=== PATIENT | female | born 1970 | race Caucasian/White ===

== ENCOUNTER 2016-12-10 06:16 | Day surgery (SDC) | payer OTHER ==
[2016-12-09 13:09] VITALS: BMI 21.9
[2016-12-10] MEDS ORDERED: MIDAZOLAM HCL 2 MG/2 ML SINGLE DOSE VIAL ONE ×2 (07:21)
[2016-12-10] MEDS ORDERED: ROPIVACAINE HCL 0.5% 30ML VIAL ONE (07:23)
[2016-12-10] MEDS ORDERED: LIDOCAINE HCL/PF 2% SDV 5ML VIAL ONE (07:45)
[2016-12-10] MEDS ORDERED: PROPOFOL 20 ML ONE ×2 (07:45→08:13)
[2016-12-10] MEDS ORDERED: SCOPOLAMINE HYDROBROMIDE 1 PATCH PATCH.TD72 ONE (08:03)
--- NOTE | 2016-12-10 08:15 | HP ---
Satellite H - Chief Complaint Chief Complaint: right shoulder pain - Past Medical History Allergies/Adverse Reactions: Allergies Allergy/AdvReac Type Severity Reaction Status Date / Time No Known Drug Allergies Allergy Verified 12/09/16 13:09 ...LMP: 09/10/16 - Current Medications Current Medications: Home Medications Medication Instructions Recorded Oxycodone HCl/Acetaminophen 1 - 2 tab PO Q6H #50 tab MDD 8 12/10/16 [Percocet 5-325 mg Tablet -] Satellite Physical Exam - Physical Examination Vital Signs: Vital Signs Period Temp Pulse Resp BP Sys/Stern Pulse Ox Last 24 Hr 97.4 F 85 16 128/77 100 General Appearance: Well Nourished, Well Developed, Alert & Oriented x3 ENT: Clear Lung: Normal air movement Heart: Regular rate & rhythm Extremities: Other (right shoudler- + ttp, decr rom, + neer, + arevalo, nvi MRI + partial rct) Neurological: Intact, Alert, Oriented Satellite Impression/Plan - Impression/Plan Impression: right shoulder rct Operative Procedure: right shoulder arthroscopy with SAD possible RCR Date to be Performed: 12/10/16
[2016-12-10] MEDS ORDERED: ceFAZolin SODIUM 1 GM VIAL IVPB ONE (08:20)
[2016-12-10] MEDS ORDERED: ceFAZolin SODIUM 1 GM VIAL ONE (08:22)
[2016-12-10] MEDS ORDERED: DEXAMETHASONE SOD PHOSPHATE 4 MG/1 ML VIAL ONE (09:00)
[2016-12-10] MEDS ORDERED: KETOROLAC TROMETHAMINE 30 MG/1 ML VIAL ONE (09:01)
--- NOTE | 2016-12-10 09:05 | OP ---
Operative Note - Note: Operative Date: 12/10/16 ([facility]) Pre-Operative Diagnosis: right shoulder impingement, adhesive capsulitis Operation: right shoulder arthroscopy with extensive debridement of bone and soft tissue, JASPREET Post-Operative Diagnosis: Same as Pre-op Surgeon: Varghese Encarnacion Structural Rigger: Maury Barakat Anesthesiologist/POCKET BUILDER: Eze Yee Anesthesia: General, Local Specimens Removed: shavings Estimated Blood Loss (mls): 5 Operative Report Dictated: Yes
[2016-12-10] MEDS ORDERED: oxyCODONE HCL 5 MG TABLET PO PRN (09:18)
[2016-12-10] MEDS ORDERED: ONDANSETRON 4 MG/2 ML VIAL IVPUSH PRN (09:18)
[2016-12-10] MEDS ORDERED: LACTATED RINGERS SOLUTION 1,000 ML IV SCH (09:30)
[2016-12-10 10:45] VITALS: TEMP 97.7
[2016-12-10] MEDS ORDERED: ONDANSETRON 4 MG/2 ML VIAL ONE (11:23)
[2016-12-10] MEDS ORDERED: ONDANSETRON 4 MG/2 ML VIAL IVPB ONE (11:30)
--- NOTE | 2016-12-10 11:52 | OP ---
DATE OF OPERATION: 12/10/2016 PREOPERATIVE DIAGNOSIS: Adhesive capsulitis, right shoulder. POSTOPERATIVE DIAGNOSIS: Adhesive capsulitis, right shoulder, plus instability, right shoulder. SURGICAL PROCEDURE: Debridement and manipulation under anesthesia. SURGICAL ATTENDING: Varghese Encarnacion MD SADDLE STITCH OPERATOR: TALAT Pruitt ANESTHESIA: Scalene and general. CLOSURE: 3-0 nylon. COMPLICATIONS: None. CONDITION: To recovery room in stable condition. DESCRIPTION OF PROCEDURE: Patient was taken to the operating room on December 10, 2016. Scalene block followed by general anesthesia was administered by the anesthesiologist. IV Kefzol was given prophylactically prior to the case. Patient was placed in the beach-chair position with all prominences well padded. First, a manipulation under anesthesia was performed. The patient had significant atrophy of her supra- and infraspinatus, and significant stiffness. With gentle manipulation, I was able to get her from neutral external rotation all the way to about 50 degrees of external rotation and from about only 50 degrees of forward flexion up to 120. However, moving her in an abduction position, the patient dislocated anteriorly, but was subluxed anteriorly and was able to be put back gently and very easily, showing anterior instability. Posterior, she had no instability. Internal rotation was complete without any manipulation. Next, a diagnostic arthroscopy of the glenohumeral joint was performed. A posterior portal was made 2 fingerbreadths below the below the acromion, first with a 15 blade followed by a blunt trocar. Anterior portal was made in the anterior triangle with spinal needle followed by blunt trocar. Blood in the glenohumeral joint was debrided using he shaver exposing the structures. Biceps and biceps anchor were found to be intact. The labrum circumferentially was found to be intact. The glenoid articular cartilage was intact as was the humeral head. Articular cartilage, which was seen, range of motion. It was very, very tight in drive-through. Subscapularis appeared to be intact to its insertion. Looking superiorly, the rest of the rotator cuff tear also seemed to be intact to its insertion. The fluid was drained from the shoulder, and the trocar was redirected in the subacromial space. A significant amount of subacromial bursal thickened tissue was encountered. This was debrided, exposing the rotator cuff on the superior aspect of the humeral head, which was found to be intact. Also, scar tissue in the subdeltoid recess was also cleaned out. No subacromial spurring was seen. The coracoacromial ligament was left in situ. Fluid was drained from the shoulder, and the trocars were removed from the shoulder. Portal sites were closed with 3-0 nylon. Then, sterile pressure dressing and sling were then applied. Patient was awakened from anesthesia and transferred to recovery in stable condition. No complications. Estimated blood loss negligible. Paulino [id number]
[2016-12-10 12:38] VITALS: BP 100/53; PULSE 73
--- NOTE | 2016-12-13 13:49 | PATH ---
Surgical Pathology Report Patient Name: FLAKITO HSIEH [facility]. Rec. #: [id number] /Age/Gender: 1970 (Age: 46) / F Account: [id number] Location: [facility] Taken: 12/10/2016 Received: 12/10/2016 Reported: 12/13/2016 Physicians: Varghese Encarnacion M.D. Specimen(s) Received SHAVINGS RIGHT SHOULDER Clinical History Right shoulder impingement syndrome Final Diagnosis RIGHT SHOULDER, ARTHROSCOPIC SHAVING: PORTIONS OF SYNOVIUM AND SKELETAL MUSCLE CONSISTENT WITH ARTHROSCOPIC SHAVINGS. Electronically Signed Chriss Ramírez M.D. Gross Description Received in formalin, labeled "right shoulder shavings," is a 3.5 x 2.3 x 0.3 cm. aggregate of lara-yellow soft tissue fragments. A sales representative supervisor portion is submitted in one cassette. /12/10/201612/10/2016
== END 2016-12-10 12:35 | disposition home or self-care (01) ==
LOC: JASU-SURG 06:16
PROVIDERS: ATTEND Orthopaedic Surgery
PROC: 0RSJXZZ Reposition Right Shoulder Joint, External Approach (ICD-10-PCS; 2016-12-10)
PROC: 0RBJ4ZZ Excision of Right Shoulder Joint, Percutaneous Endoscopic Approach (ICD-10-PCS; principal; 2016-12-10 08:00)
DX: M75.01 Adhesive capsulitis of right shoulder (principal); M25.311 Other instability, right shoulder
CPT/HCPCS: 84703; 88304-TC; 94760